=== PATIENT | male | born 1975 | race Hispanic/Latino ===

== ENCOUNTER 2016-08-11 20:27 | Emergency (ER) | payer BC ==
[2016-08-11 20:28] VITALS: BMI 32.6
[2016-08-11 21:44] LABS: RBC URINE 1 /hpf (0-3); URINE BILIRUBIN NEGATIVE (NEGATIVE); URINE BLOOD NEGATIVE (NEGATIVE); URINE COLOR Yellow (YELLOW); URINE GLUCOSE (UA) NORMAL (Normal); URINE KETONE NEGATIVE (NEGATIVE); URINE LEUKOCYTE ESTERASE NEG Leu/uL (Negative); URINE PROTEIN NEGATIVE (NEGATIVE); URINE UROBILINOGEN NORMAL mg/dL (0.2-1.0); WBC URINE < 1 /hpf (0-5)
--- NOTE | 2016-08-11 23:12 | C.PDOC ---
History Of Present Illness 40 year old male presents to the ED with complaints of burning upon urination today. Patient states he had unprotected sex two weeks ago and was called by his partner notifying him she was positive for trichmoniasis. He denies discharge, fever, nausea, or vomiting. Time Seen by Provider: 08/11/16 21:13 Chief Complaint (Nursing): Male Genitourinary History Per: Patient History/Exam Limitations: no limitations Onset/Duration Of Symptoms: Hrs Current Symptoms Are (Timing): Still Present Quality Of Discomfort: Burning Associated Symptoms: denies: Fever, Chills, Nausea, Vomiting, Diarrhea Recent travel outside of the [place]: No Past Medical History Reviewed: Historical Data, Nursing Documentation, Vital Signs Vital Signs: Last Vital Signs Temp 97.4 F L 08/11/16 23:16 Pulse 78 08/11/16 23:16 Resp 18 08/11/16 23:16 BP 160/82 H 08/11/16 23:16 Pulse Ox 96 08/11/16 23:16 - Medical History PMH: HTN, Seizures Surgical History: Hernia Repair (Inguinal) Family History: States: [place] (Father) - Social History Hx Alcohol Use: Yes Hx Substance Use: Yes - Immunization History Hx Tetanus Toxoid Vaccination: No Hx Influenza Vaccination: No Hx Pneumococcal Vaccination: No Review Of Systems Constitutional: Negative for: Fever, Chills, Sweats Cardiovascular: Negative for: Chest Pain, Palpitations Respiratory: Negative for: Cough, Shortness of Breath Gastrointestinal: Negative for: Nausea, Vomiting, Abdominal Pain, Diarrhea Genitourinary: Positive for: Dysuria. Negative for: Hematuria, Penile Discharge Physical Exam - Physical Exam Appears: Non-toxic, No Acute Distress Skin: Warm, Dry Head: Atraumatic Eye(s): bilateral: Normal Inspection Oral Mucosa: Moist Neck: Normal ROM, Supple Chest: Symmetrical, No Deformity Cardiovascular: Rhythm Regular Respiratory: No Accessory Muscle Use, No Rales, No Rhonchi, No Stridor, No Wheezing Gastrointestinal/Abdominal: Soft, No Tenderness, No Distention, No Guarding, No Rebound Extremity: Normal ROM, No Tenderness Neurological/Psych: Oriented x3 ED Course And Treatment O2 Sat by Pulse Oximetry: 97 (room air) Medical Decision Making Medical Decision Making: Patient was given flagyl and zithromax. Disposition - Disposition Disposition: HOME/ ROUTINE Disposition Time: 23:10 Condition: STABLE Additional Instructions: Follow up with PMD within 1-2 days. Return to ED if feel worse. Prescriptions: Doxycycline Hyclate [Doryx] 100 mg PO BID #14 cap metroNIDAZOLE [Flagyl] 500 mg PO BID #14 tab Instructions: Sexually Transmitted Diseases (ED), Safe Sex (ED) - Clinical Impression Clinical Impression: Exposure to STD - Scribe Statement The provider has reviewed the documentation as recorded by the Scribsherita Knight All medical record entries made by the Annette were at my direction and personally dictated by me. I have reviewed the chart and agree that the record accurately reflects my personal performance of the history, physical exam, medical decision making, and the department course for this patient. I have also personally directed, reviewed, and agree with the discharge instructions and disposition.
[2016-08-11 23:16] VITALS: BP 160/82; PULSE 78; RESP 18; TEMP 97.4
[2016-08-12 00:23] VITALS: O2SAT 97
== END 2016-08-11 23:15 | disposition home or self-care (01) ==
LOC: C.ER 20:27
DX: Z20.2 Contact with and (suspected) exposure to infections with a predominantly sexual mode of transmission (principal)